=== PATIENT | female | born 1990 | race Caucasian/White ===

== ENCOUNTER 2021-06-22 14:29 | Outpatient (CLI) | payer MEDICAID, SELFPAY ==
[2021-06-27 12:01] LABS: Chlamydia By Nucleic Acid AMP Negative (Negative)
[2021-06-27 12:24] LABS: Gonococcus By Nucleic Acid AMP Negative (Negative)
[2021-06-28 22:42] LABS: HPV Reflexed? NOT INDICATED
== END 2021-06-22 23:59 | disposition home or self-care (01) ==
LOC: LABSPEC 14:31
PROVIDERS: Visit Provider Obstetrics & Gynecology
DX: Z12.4 Encounter for screening for malignant neoplasm of cervix (principal); Z11.3 Encounter for screening for infections with a predominantly sexual mode of transmission
CPT/HCPCS: 87491; 87591; 88175; G0145

== ENCOUNTER 2021-06-26 11:28 | Day surgery (SDC) | payer MEDICAID, SELFPAY ==
--- NOTE | 2021-06-24 16:04 | HP.PCM_ITS ---
History and Physical Date of Admission: 06/26/21 Surgical History and Physical Shannon Bishop, a 30 year old female 1 3 1 1 4, presents for Hysteroscopic IUD removal and IUD Placement on 06/26/21 . -- Impacted IUD -- unable to feel IUD string; IUD placed 08/30. Unable to remove in office. Due for replacement. MEDICATIONS HISTORY: Current medications prescribed by our practice are: 1. doxycycline hyclate 100 mg capsule, One pill by mouth twice a day Patient is also takin. Mirena 20 mcg/24 hr (5 years) intrauterine device, As Directed ALLERGIES: NKDA, Percocet and Muscle spasms/twitching Infections - Chickenpox Vaccine Illnesses - no serious past illnesses Accidents - None Hospitalizations - see surgery by [facility]; Review of Systems: GENERAL - Denies fever, or chills SKIN - Denies skin changes EYES - Denies visual changes EARS - Denies difficulty hearing NOSE - Denies nasal congestion or bleeding MOUTH - Denies sore throat or difficulty swallowing NECK - Denies pain or swelling RESPIRATORY - Denies shortness of breath or wheezing CARDIOVASCULAR - Denies palpitations or chest pain GASTROINTESTINAL - Denies nausea, vomiting, diarrhea, constipation GENITOURINARY - Denies dysuria, frequency of urination, incontinence of urine MUSCULOSKELETAL - Denies joint or muscle pain NEUROLOGICAL - Denies localized numbness or weakness PSYCHIATRIC - Denies depression or anxiety ENDOCRINE - Denies heat or cold intolerance, weight loss or gain HEMATO-IMMUNOLOGIC - Denies excesive bleeding with cuts SOCIAL HISTORY: Alcohol Use - drinks occasionally Smoking - 3-5 cigs per day/ attempting to quit Diet - moderately well balanced, occ problems with lactose Lifestyle - high stress, seperated Exercise - regular Seat Belt Use - always Employer - Unemployed Illicit Drug Use - uses marijuana and as a teen Sexual Activity - single sexual partner Residence - owns a home Spouse-Sig Other Name - Garfield Spouse-Sig Other Occupation - [employer] Children Name(s) - Pio (twins 2009), Natalia (adopted out 2011), Jerzy (2013) Control - IUD FAMILY HISTORY: Mother: Mental Chemical Imbalnaces. Brother: Thyroid Problems. Sister: Mental chemical Imbalances. MENSTRUAL HISTORY: LMP Known?- Mirena IUDAmount/Duration - 5 to 7 days, Regularity - Regular, Frequency - monthly days, LMP - 06/18/21, Age Onset Menarche - 15 PAST PREGNANCIES: Total Pregnancies - 4; Full Term Pregnancies - 1; Premature - 3; Abortions, Induced - 0; Abortions, Spontaneous - 1; Ectopics - 0; Multiple Births - 1; Living Children - 4 SURGICAL HISTORY: 1994 [facility] and A ; - PHYSICAL EXAM BP- 132/86 Sitting, Right arm, regular cuff Weight- 105.0 lbs Height- 61.50 inch BMI:19.5 CONSTITUTIONAL - NAD, well nourished, and well developed SKIN - No rash, lesions, or ulcers HEENT - Normocephalic, PERRLA, EOMI NECK - No nodes, no nuchal rigidity and thyroid normal size and texture LYMPH NODES - Palpation of lymph nodes in neck and groins within normal limits LUNGS - CTA x2 without wheezes, crackles or rales CARDIAC - Regular rate and rhythm without rubs, murmurs, or gallops BREAST - No dominant masses, no tenderness, no axillary adenopathy, no nipple discharge, no skin changes ABDOMEN - Without hepatosplenomegaly, distention, masses, rebound, or guarding; normal bowel sounds; no hernias EXTREMITIES - No edema or calf tenderness NEUROLOGICAL - Cranial nerves II-XII grossly intact PSYCHIATRIC - A and O to time, place, person, mood and affect External Genitial Vagina - non-tender without lesions Urethra/Urethral Meatus - non-tender Bladder - non-tender Vagina - vaginal martinez are pink and moist without loss of rugae and no evidence of atropy Cervix - without cervical motion tenderness and has normal size and features without evident lesions and IUD string not seen Uterus - 5-6 cm in size, mobile and nontender Adnexa - clear without massess or tenderness ASSESSMENT/PLAN: Impacted IUD Unable to remove IUD in office even under u/s guidance. Plan H/S removal and reinsertion of new IUD. Discussed RBAs.
[2021-06-26] VITALS (7 sets, daily range): BP systolic 107–117; BP diastolic 67–81; PULSE 60–80; RESP 16; TEMP 36.4–37.2; O2SAT 100; BMI 19.2
[2021-06-26] MEDS: Lactated Ringers 1,000 ML 100 ML IV (12:00)
[2021-06-26 12:30] LABS: Internal QC Validated? YES +Cl - CLEAR BKGD; Pregnancy, Urine Negative Negative
[2021-06-26 13:04] LABS: Hematocrit 39.3 % (37-47); Hemoglobin 13.3 g/dL (12.0-15.0); Mean Corp Hgb Conc 33.8 g/dL (32-36); Mean Corpuscular Hgb 32.7 pg (27.0-32.0); Mean Corpuscular Volume 96.6 fL (81-99); Mean Platelet Vol. 9.6 fl (6.2-12.0); Platelet Count 241 K/mm3 (150-450); RBC Distribution Width CV 11.8 % (11.6-14.6); Red Blood Count 4.07 M/mm3 (4.2-5.4)
--- NOTE | 2021-06-26 13:06 | PCM.OPRPT ---
Report of Operation Date of Procedure: 06/26/21 Pre-Operative Diagnosis: Impacted Intrauterine Device Post-Operative Diagnosis: Impacted Intrauterine Device Surgery/Procedure Performed:: Hysteroscopy, Removal of IUD Device, Placement of Liletta IUD Description of Surgical Findings:: Mirena IUD noted at fundus of uterus in an 8 cm endometrial cavity. Surgeon: Orion Kang Type of Anesthesia: MAC Anesthesiologist: Abdirahman Del Castillo Specimen's removed: Mirena IUD, discarded Estimated Blood Loss (mL): Minimal Fluids Replaced: Crystalloid Description of Procedure: Surgeon: Orion Kang MD, FACOG Indication: This is a 30 year old patient who presented last week to the office for replacement of Mirena IUD. IUD string was not visible and despite ultrasound guidance we were unable to remove this IUD in the office. Pt has been counseled regarding the risks, benefits and alternatives of this procedure and all questions answered. Procedure: Patient taken to the operating room where after IV sedation the patient was prepped and draped in the usual sterile fashion. Anterior cervix grasped and cervix was dilated to about 4-5 mm. A 3 mm hysteroscope was inserted IUD retrieved without difficulty. About 75 cc of normal saline was used and all of this recovered. A new Liletta was then placed in the usual fashion trimming the IUD string to about 2 cm length. The patient tolerated the procedure well and was taken to the recovery room in satisfactory condition. Sponge, instruments and needle counts were all correct. There were no apparent complications of the surgery. Cefotan 2 gms IV was given prior to the procedure. Estimated Blood Loss: Minimal Grafts/Implants Used: Liletta IUD brought from [place] PER DIEM PHYSICAL THERAPIST ASSISTANT office (Lot [id number]; Exp 07/2024) Complications None Admit VTE Documentation VTE Present on Admission: Yes VTE Mechan Device Prophylaxis: SCD's
[2021-06-26] MEDS: Cefotetan 2 GM in 0.9% NS 100 ML IV (13:15)
--- NOTE | 2021-06-26 13:37 | PCM.DC ---
Discharge Instructions Diet Discharge Diet: No restrictions Activity Discharge Activity: Return to Normal Activity, May Shower and May Take a Tub Bath Additional Activity Instructions:: Nothing in vagina for 1 to 2 days. Okay the use ibuprofen or Tylenol per package directions for any cramping you may have over the next few days. Dressing / Incision Call your doctor if you observe: Fever of 101 or Higher, Inability to urinate and Inability to have a bowel movement Follow Up Care Please Follow Up With: Orion Kang MD When: 4 weeks Test Results: Test results from this visit will be discussed in further detail at your follow-up appointment, if applicable. Discharge Plan Admission Primary Reason for Your Visit: Hysteroscopic IUD Removal; Liletta IUD Placement Attending Provider: Orion Kang Primary Care Provider: Care Physician,Lashay Primary Discharge Orders/Prescriptions Prescriptions: No Action diphenhydramine HCl [Allergy] 25 mg Tablet 25 mg PO DAILY RF: 0 Referrals / Follow Up: Care Physician,No Primary [Primary Care Provider] - Disposition Disposition (needs filled in before D/C Order can be placed): Home, Self Care
== END 2021-06-26 23:59 | disposition home or self-care (01) ==
LOC: SDC 11:29 → AC 11:31
PROVIDERS: Anesthesiology; Visit Provider Obstetrics & Gynecology
PROC: 0UDB8ZZ Extraction of Endometrium, Via Natural or Artificial Opening Endoscopic (ICD-10-PCS; CPT 58558; principal; 2021-06-26 13:10)
DX: Z30.433 Encounter for removal and reinsertion of intrauterine contraceptive device (principal); F17.210 Nicotine dependence, cigarettes, uncomplicated; T83.39XA Other mechanical complication of intrauterine contraceptive device, initial encounter; Y84.8 Other medical procedures as the cause of abnormal reaction of the patient, or of later complication, without mention of misadventure at the time of the procedure
CPT/HCPCS: 58300; 58301; 00940; 81025; 85027; 86850; 86900; 86901; J7120; J2405

== ENCOUNTER 2024-03-30 17:10 | Emergency (ER) | payer MEDICAID, SELFPAY ==
[2024-03-30 17:10] VITALS: BP 126/89; PULSE 91; RESP 20; TEMP 36.2; O2SAT 100; BMI 19.2
--- NOTE | 2024-03-30 17:15 | RAD_ITS ---
EXAM: XR RIGHT HAND COMPLETE, 3 OR MORE VIEWS CLINICAL INDICATION: FALL TECHNIQUE: Frontal, lateral and oblique views of the right hand. COMPARISON: No relevant prior studies available. FINDINGS: BONES/JOINTS: There is a fracture of the distal fifth metacarpal. Preservation of the joint space. No sclerotic or destructive changes observed. SOFT TISSUES: Unremarkable. No soft tissue swelling or gas. No radiopaque foreign body. RAD/Hand Min 3 Views IMPRESSION: Fracture of the distal fifth metacarpal. Electronically Signed: Gume Ford MD at 17:47 EST ,
--- NOTE | 2024-03-30 19:48 | EX.ED.UPPERE ---
HPI History of Present Illness Chief Complaint: Upper Extremity Injury Narrative Narrative: 33-year-old female, [id number], denies significant past medical history presents with injury to her right hand that she sustained approximately 3-1/2 hours ago. She states that she slipped on the ice and fell. Her right hand was in the pocket of her hoodie, and she fell to the right, injuring her right hand. She has pain, swelling, and bruising over the distal fifth metacarpal. She denies hitting her head or loss of consciousness, no other injury. No neck pain. PFSH PFSH Medical History Ear piercing Infected pierced face Infected pierced clitoris Pierced tongue Wears glasses Alcohol use Marijuana use Easy bruising Injury of head and neck Smoker Home Medications ?Medication ?Instructions ?Recorded ?Last Taken ?Type diphenhydramine HCl 25 mg tablet 25 mg PO DAILY 06/23/21 Unknown History (Allergy) oxycodone 5 mg tablet 5 mg PO Q6H PRN pain 3 days #12 03/30/24 Unknown Rx tabs Allergy/AdvReac Type Severity Reaction Status Date / Time acetaminophen (From Percocet) Allergy Hives Verified 06/23/21 08:11 oxycodone HCl (From Percocet) Allergy Hives Verified 06/23/21 08:11 Surgical History Hx of wisdom tooth extraction History of tonsillectomy and adenoidectomy Social History Smoking Status: Current every day smoker tobacco type: cigarettes ROS ROS ED ROS Narrative Review of systems positive for right hand pain and swelling over the fifth knuckle at the base of the fifth digit. Denies other injury. EXAM Physical Exam Narrative Exam Narrative: GCS 15. ABCs intact. Tearful on examination. Inspection of the right hand does reveal ecchymosis tenderness and swelling at the distal right fifth metacarpal. Uninjured at the wrist and above. Const Vital Signs: 03/30/24 17:10 Temperature 97.2 F L Temperature Source Temporal Pulse Rate 91 Respiratory Rate 20 H Blood Pressure 126/89 H Blood Pressure Mean 101 Pulse Ox 100 Oxygen Delivery Method Room Air MDM MDM MDM Narrative Medical decision making narrative: Differential diagnosis includes but not limited to hand contusion versus fracture. X-rays were obtained per protocol and interpreted by myself independently which shows a fracture of the distal fifth metacarpal with angulation of the metacarpal head volarly. Patient declines analgesics here in the emergency department. She drove herself here so she cannot be given narcotics and she declined Tylenol or ibuprofen. She was placed in a ulnar gutter splint with fingers at 45 degrees at the fourth and fifth digit as best as she tolerated.. She will be written for narcotic analgesics and referred to plastics/hand surgery. She was written a prescription for oxycodone. She states that she is not allergic to any medications and that was a mistake in her medical record. She was given a sling for comfort. I stressed the importance of follow-up with hand. Disposition is discharged home in stable condition. Radiography Diagnostic Testing: Clinical Impression(s) from Imaging Studies Hand X-Ray 03/30/24 17:15 IMPRESSION: Fracture of the distal fifth metacarpal. Electronically Signed: Gume Ford MD at 17:47 EST , Procedures Upper Extremity Splints Upper Extremity Splint: Orthoglass and Ulnar gutter Splint Fabrication: Fabricated Location: Right Discharge Plan Triage Chief Complaint: Upper Extremity Injury ED Provider: Rodrigo Davies Dx/Rx/DC Orders Clinical Impression: Fall, Closed fracture of fifth metacarpal bone of right hand Instructions: ED Closed Hand Fracture (Adult) Prescriptions: New oxycodone 5 mg tablet 5 mg PO Q6H PRN (Reason: pain) 3 Days Qty: 12 0RF No Action diphenhydramine HCl [Allergy] 25 mg Tablet 25 mg PO DAILY Primary Care Provider: Care Physician,No Primary Referrals: rOtega Diamond MD [Med Staff - Active Staff] - 3-5 Days Care Physician,No Primary [Primary Care Provider] - Print Language: [place] Disposition Disposition: Home, Self Care
[2024-03-30 21:10] VITALS: BP 121/79; PULSE 81; RESP 16; TEMP 36.6; O2SAT 99
== END 2024-03-30 21:17 | disposition home or self-care (01) ==
PROVIDERS: Emergency Provider Emergency Medicine; Visit Provider Emergency Medicine
DX: S62.306A Unspecified fracture of fifth metacarpal bone, right hand, initial encounter for closed fracture (principal); W00.0XXA Fall on same level due to ice and snow, initial encounter; F17.210 Nicotine dependence, cigarettes, uncomplicated
CPT/HCPCS: 29125; 73130; 99283

== ENCOUNTER 2024-04-01 11:25 | Day surgery (SDC) | payer MEDICAID, SELFPAY ==
[2024-04-01] VITALS (10 sets, daily range): BP systolic 97–112; BP diastolic 66–77; PULSE 62–76; RESP 16; TEMP 36.1–37.2; O2SAT 98–100; BMI 19.8
[2024-04-01 11:49] LABS: Internal QC Validated? YES +Cl - CLEAR BKGD; Pregnancy, Urine Negative Negative
--- NOTE | 2024-04-01 11:50 | PCM.HP.STD ---
HPI - General HPI Narrative Shannon Bishop is a delightful 33-year-old [id number] female who sustained a right hand injury on 30 March 2024 when she slipped and fell on ice. Her right hand was in her pocket when she slipped and fell. She denies any other injuries in her elbow wrist shoulder or head. No neck pain. She presented to the emergency department yesterday after the mechanical fall and was cleared for follow-up in our office today. Denies any headaches or loss of consciousness. Patient reports sharp severe pain in the right upper extremity worsened by movements and improved with rest and elevation. No history of trauma to the right upper extremity or surgery. She does not have any history of bleeding or clotting problems. She is a current every day smoker (discussed smoking cessation and bone healing). Patient works for [employer] as primary income. Has 4 children. No longer living with her . She would like to get back to her regular ADLs as soon as possible. Current Encounter (DATE OF SURGERY H&P UPDATE): I saw and examined the patient this morning in pre-operative holding. We discussed risks and benefits of today's surgery and they would like to proceed. NO CHANGE in health history since last seen and evaluated. Ready to proceed with surgery. [facility] Medical History Ear piercing Infected pierced face Infected pierced clitoris Pierced tongue Wears glasses Alcohol use Marijuana use Easy bruising Injury of head and neck Smoker Home Medications ?Medication ?Instructions ?Recorded ?Last Taken ?Type diphenhydramine HCl 25 mg tablet 25 mg PO DAILY 06/23/21 Unknown History (Allergy) oxycodone 5 mg tablet 5 mg PO Q6H PRN pain 3 days #12 03/30/24 Unknown Rx tabs acetaminophen 500 mg tablet 500 mg PO Q6H PRN 03/31/24 Unknown History (Tylenol Extra Strength) cephalexin 500 mg capsule 500 mg PO Q8H 5 days #15 caps 04/01/24 Unknown Rx Allergy/AdvReac Type Severity Reaction Status Date / Time acetaminophen (From Percocet) Allergy Hives Verified 03/31/24 10:21 oxycodone HCl (From Percocet) Allergy Hives Verified 03/31/24 10:21 Surgical History Hx of wisdom tooth extraction History of tonsillectomy and adenoidectomy Social History Smoking Status: Current every day smoker tobacco type: cigarettes Electronic Cigarette Use: with nicotine alcohol intake: current alcohol intake frequency: holidays/special occasions only additional social history: No personal or family hx blood clots Physical Exam Narrative Closed injury Inspection: Slight angulation/scissoring of the small finger radially. Significant bruising Palpation: No tenderness to palpation of the wrist or of the scaphoid. No tenderness to palpation in the other portions of the hand. No tenderness to the elbow/shoulder. Motor: Extensor lag of the right small finger. Unable to make a fist. Bends DIP and PIP joints, however (no flexor injuries). Normal range of motion the rest of upper extremity. Sensory: Intact to light touch on the radial and ulnar borders. Vascular: Finger tips are warm and well perfused with <2 second capillary refill. Results Lab / Micro Data Labs: Laboratory Results - last 24 hr 04/01/24 11:40: Urine Test Negative Assessment & Plan Assessment/Plan (1) Closed fracture of fifth metacarpal bone of right hand: PLAN: Discussed options for management including local anesthesia with an attempt at reduction today in clinic followed by x-rays. She declined this option. Discussed risks of nonoperative management including malunion or nonunion and poor function of the small finger. Discussed the risks, benefits, and alternatives of closed reduction percutaneous pinning versus open reduction internal fixation of the small finger. She would like to proceed with surgery I talked the patient extensively about the risks of surgery, including bleeding, infection, hardware failure, malunion or nonunion, need for revision of the hardware removal of the hardware, MRI incompatibility of screws/wires, damage to surrounding structures, surgical site dehiscence and wound formation, need for wound care, need for repeat operations, failure to obtain the desired result, DVT/PE, and the risks of anesthesia including . The benefits and alternatives of this surgery were also discussed. All of their questions were answered, and they agreed to proceed with surgery. Plan for Nikhil block with sedation and closed reduction percutaneous pinning versus open reduction internal fixation of the right small finger (likely open reduction internal fixation with screw). I talked to the patient extensively today about options. She is no longer with and needs income for her 4 children. She would like to do screw, if possible, (understands risks/benefits) for early active ROM. Further discussed risks as noted above today, including comminution of the fracture 2/2 the hardware and need for prolonged immobilization for healing if the IM screw cannot be safely placed. INTERVAL H&P PLAN, DATE OF SURGERY: We will proceed with surgery today.
[2024-04-01] MEDS: Lidocaine 0.5% (50 ml) 50 ML Vial (11:58)
--- NOTE | 2024-04-01 12:00 | RAD_ITS ---
Exam: XR Fingers Min 2 Views RIGHT HAND Comparison: Plain films March 30, 2024. Showing mildly displaced, distracted and angulated distal fifth metacarpal fracture. History: CLOSED REDUCTION PERCUTANEOUS PINNING VERSUS OPEN REDUCTION. 5TH Radiation dose: Total exposure time 14 seconds, total DAP 1.8962cGy*cm*, total Air Kerma 0.1129 mGy. TECHNIQUE : 14 fluoroscopic spot images of the fifth metacarpal. FINDINGS: Initial view of fractured fifth metacarpal, localizer, multiple procedural images, and placement of intramedullary stabilization michelle. The fracture margins appear well approximated final view. RAD/Finger(s) Min 2 Views IMPRESSION: Intraoperative exam. Please see the procedural report. Well-positioned hardware bridging fifth metacarpal fracture . Electronically Signed: Karla Moise MD at 2:11 EST ,
--- NOTE | 2024-04-01 12:13 | PCM.OPRPT ---
Operative Report (Standard) Operative Information Date of Procedure: 04/01/24 Pre-Operative Diagnosis: Right small finger metacarpal neck fracture Post-Operative Diagnosis: Same Surgery/Procedure Performed: 1) Open reduction, internal fixation of the right small finger metacarpal fracture, CPT: 48081 administrative services officer: Yes [employer] Truck Driver: Donald Patel Tasks completed by assistant auto center manager: Retracting Type of Anesthesia: Local MAC (Nikhil block and local (10 cc of 0.25% marcaine) ) RN Documented Start/Stop Times: Operation Date: 04/01/24 13:30 Case Time Into Pre-Op 04/01/24 11:59 Anesthesia Start 04/01/24 12:46 Into Room 04/01/24 12:46 Procedure Start 04/01/24 13:08 Procedure End 04/01/24 13:35 Anesthesia End 04/01/24 13:41 Out of Room 04/01/24 13:41 Into Recovery 04/01/24 13:44 Into Phase II Recovery 04/01/24 14:30 Out of Recovery 04/01/24 14:30 Out of Phase II 04/01/24 14:59 Procedure Start Time: 13:08 Procedure Stop Time: 13:35 Select all DRAINS/GRAFTS/IMPLANTS that apply: Implanted device (Intramedullary screw, please see details below ) Implanted device details: Exsomed INnate Implant, 3.6 mm x 40 mm Estimated Blood Loss: minimal Specimen collected: No Description of surgery: Indications: Patient is a delightful 33-year-old female who sustained a right metacarpal neck fracture 2 days ago when she fell on ice. It is significantly displaced. She would like to get back to work and moving her hand as soon as possible (would like early active range of motion), and therefore would like me to attempt open reduction internal fixation with an intramedullary screw. She understands the risks, benefits, and alternatives of this procedure, and understands we may have to use K wires if we are unable to place a screw. Procedure details: Patient was correctly identified preoperative holding and marked, and taken back to the operating room where they were administered [place] block anesthesia, sedation, and some local. They were prepped and draped in sterile fashion and all proper timeouts were performed per protocol. I began the procedure by taking an x-ray of the fracture. I was able to reduce the ring finger metacarpal fracture with gentle manipulation. I then took a guidewire for an Exsomed intramedullary screw and drilled from the metacarpal head into the diaphysis of the metacarpal with the small finger flexed. Mini C arm x-rays confirmed proper placement and reduction (on PA and lateral). I then checked the digital cascade and there was no angulation or rotation of the ring finger or scissoring. Therefore we proceeded and a cut down with 15 blade scalpel was made down to the head of the metacarpal with care taken to split the tendon longitudinally (this was the open part of the procedure). The 3.6 mm x 40 mm screw was then placed through the guidewire into the metacarpal across the fracture line bridging the gap and filling the medullary cavity well. I was happy with the x-ray on PA and lateral. I stressed the fracture line with radial and ulnar stress, and will flexing the finger, and the construct appeared to be rigid and stable. The guidewire was removed. The cascade was checked one more time and was acceptable. With the guidewire removed, I then irrigated the small wound on the dorsum of the hand and closed with an interrupted horizontal mattress 4-0 nylon suture. The patient tolerated the procedure well and was placed in an ulnar gutter splint with plaster. Post-operative plan: F/u on Saturday, 07 Apr 2024, for wound check and x-ray, then likely removable splint and OT (hand therapy early active ROM). Current splint is to remain until that time (1 week). Surgical Findings: Reducible small finger metacarpal neck fracture with enough distal bone stock for screw Complications Complications: No Admit VTE Documentation VTE Mechan Device Prophylaxis: SCD's
--- NOTE | 2024-04-01 12:34 | PRE.ANES_ITS ---
ASA Classification* ASA Classification ASA Classification: 2 Assessment & Plan Anesthesia* Anesthesia Assessment Anesthesia Assessment: Discussed sedation and/or anesthesia options, risks, benefits, and alternatives with patient/parents/legal guardian/POA. Questions invited. The patient/parents/legal guardian/POA seems to understand and agrees to proceed with anesthesia plan. Reviewed the physical assessment, medical history, allergy history and patient home medications list prior to surgery/procedure/anesthetic and documented any changes. Performed airway and anesthesia risk assessments. Anesthesia Type Anesthesia Type: Block (Nikhil Block with sedation) Anesthesia Focused Assessment* Temperature: 99 F Pulse Rate: 73 Blood Pressure: 112/69 Respiratory Rate: 16 Pulse Ox: 99 Airway Assessment Mouth opens: >3 cm Mallampati Score: II Focused Labs Anesthesia Preop lab: CBC WBC 6.0 K/mm3 (4.4-11.0) 06/26/21 12:45 RBC 4.07 M/mm3 (4.2-5.4) L 06/26/21 12:45 Hgb 13.3 g/dL (12.0-15.0) 06/26/21 12:45 Hct 39.3 % (37-47) 06/26/21 12:45 Plt Count 241 K/mm3 (150-450) 06/26/21 12:45 CHEMISTRY Potassium 3.6 mmol/L (3.5-5.1) 07/12/13 19:35 Sodium 137 mmol/L (136-145) 07/12/13 19:35 BUN 10 mg/dL (7-18) 07/12/13 19:35 Creatinine 0.4 mg/dL (0.6-1.0) L 07/12/13 19:35 Glucose 77 mg/dL (70-110) 07/12/13 19:35 TSH 0.78 uIU/mL (0.358-3.74) 03/06/13 10:20 COAG HCG, Quant 6851 mIU/mL (<9 non-preg) H 02/26/13 15:57 Urine Test Negative Negative 04/01/24 11:40 Pre-Assessment Diagnosis/Proposed Procedure Planned Operative Procedure(s): closed reduction percutaneous pinning versus open right small finger Anesthesia History 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 When Was Last Pacemaker Check QUESTION #4 FULL TEXT: You/Your Family Experience fever (hyperthermia) with Anesthesia Last Oral Intake Last Oral intake: Last Oral Intake NPO since 23:30 04/01/24 11:59 Meds taken in AM with sips of No 04/01/24 11:59 water? Meds patient instructed to take am of surgery PONV PONV - roll line operator: PONV - roll line operator Female HX of Motion Sickness HX of N/V After Surgery Non-Smoker Duration of Surgery greater than 60 minutes Number of Risk Factors PONV Score Height & Weight Height & Weight: Anesthesia: Height & Weight Height 5 ft 2 in 04/01/24 11:59 Weight: 49 kg 04/01/24 11:59 Body Mass Index (BMI) 19.8 04/01/24 11:59 Respiratory Assessment Respiratory Assessment - roll line operator: Respiratory Tract Infection Hx - roll line operator Hx Respiratory Tract Infection No 06/23/21 08:13 STOP Sleep Apnea STOP Sleep Apnea - roll line operator: STOP Sleep Apnea - roll line operator Hx Hypertension No 06/23/21 08:13 Hx Sleep Apnea No 06/23/21 08:13 CPAP BIPAP Do you snore loudly (louder than talking or can be heard Do you often feel tired/ fatigued/ sleepy during daytime? Has anyone observed you stop breathing during sleep? STOP Results QUESTION #5 FULL TEXT : Do you snore loudly (louder than talking or can be heard through closed doors)? Tobacco Use History Tobacco Use History - roll line operator: Tobacco Use History - roll line operator Tobacco Use Smoking Status Current every day smoker 03/31/24 10:27 Hx Tobacco Use Yes 06/23/21 08:13 Years Smoking Packs Smoked per Day Smoking Cessation Date was within the last 15 years Hx Smoking Cessation Date Hx Smoking Cessation Counseling Hematologic Medial History Hematologic Hx - roll line operator: Hematologic Medical Hx - infusion rn Hx of Blood Transfusion Hx of Transfusion in last 3 Months Date of Last Transfusion (if within last 3 months) Ever experience any problems with transfusion(s)? Specify any problems Hx of Preganancy in last 3 Months Nurse Filling Out Transfusion & Questions: Date: Time: Patient unable to answer at this time (ie. confused, unrespo /Reproduction History /Reproductive History - roll line operator: /Reproductive Hx- roll line operator Hx Now Gestational Age (in weeks): EDC: Hx Hx Para Hx Section SAB No 03/30/24 17:10 PFSH Medical History Ear piercing Infected pierced face Infected pierced clitoris Pierced tongue Wears glasses Alcohol use Marijuana use Easy bruising Injury of head and neck Smoker Home Medications ?Medication ?Instructions ?Recorded ?Last Taken ?Type diphenhydramine HCl 25 mg tablet 25 mg PO DAILY 06/23/21 Unknown History (Allergy) oxycodone 5 mg tablet 5 mg PO Q6H PRN pain 3 days #12 03/30/24 03/31/24 Rx tabs acetaminophen 500 mg tablet 500 mg PO Q6H PRN pain 03/31/24 Unknown History (Tylenol Extra Strength) cephalexin 500 mg capsule 500 mg PO Q8H 5 days #15 caps 04/01/24 Unknown Rx Allergy/AdvReac Type Severity Reaction Status Date / Time No Known Allergies Allergy Verified 04/01/24 11:57 Surgical History Hx of wisdom tooth extraction History of tonsillectomy and adenoidectomy Social History Smoking Status: Current every day smoker tobacco type: cigarettes Electronic Cigarette Use: with nicotine alcohol intake: current alcohol intake frequency: holidays/special occasions only additional social history: No personal or family hx blood clots Review of Systems (Anesthesia) ROS Narrative System reviewed and no additional complaints, except as documented.
[2024-04-01] MEDS: Cefazolin 2 GM in Syringe IV (12:57)
--- NOTE | 2024-04-01 13:50 | PCM.POST.ANE ---
Anesthesia: Postop Eval I Current Vital Signs Temperature: 97.1 F Pulse Rate: 76 Blood Pressure: 97/66 Respiratory Rate: 16 Pulse Ox: 99 Oxygen Delivery Method: Room Air Assessment Airway patent: Yes Spontaneous unlabored respirations: Yes Mental status: Awake nausea: No Vomiting: No Anesthesia Complication: No Fluid Hydration Crystalloid volume administer (ml): 10 Total IV fluid infused: 10 Progress Note Anesthesia document: Postop Eval 1 completed: Yes
--- NOTE | 2024-04-01 13:55 | POSTOPAN2_ITS ---
Anesthesia Postop Eval I Sum Postop Eval Completion status Anesthesia document: Postop Eval 1 completed: Yes Anesthesia Postop Eval I Summary Anesthesia Postop Eval I Summary: Anesthesia Postop Eval I: Assessment Summary Airway patent Yes 04/01/24 13:51 [email or web address] Spontaneous unlabored Yes 04/01/24 13:51 PUMP [email or web address] respirations Mental status Awake 04/01/24 13:51 [email or web address] nausea No 04/01/24 13:51 PUMP [email or web address] Vomiting No 04/01/24 13:51 PUMP [email or web address] Anesthesia Postop Eval I: Fluid Summary Crystalloid volume administer 10 04/01/24 13:51 PUMP [email or web address] (ml) Colloids volume administered ( ml) Blood Product volume administered (ml) Total IV fluid infused 10 04/01/24 13:51 PUMP [email or web address] Anesthesia Postop Eval I: Summary Notes Anesthesia Complication No 04/01/24 13:51 PUMP [email or web address] Anesthesia Complication Comment: Post-operative progress note Anesthesia: Postop Eval II Evaluation Mental status: Awake Pain Level: 0 nausea: No Vomiting: No
--- NOTE | 2024-04-01 13:55 | PCM.POSTANE2 ---
Anesthesia Postop Eval I Sum Postop Eval Completion status Anesthesia document: Postop Eval 1 completed: Yes Anesthesia Postop Eval I Summary Anesthesia Postop Eval I Summary: Anesthesia Postop Eval I: Assessment Summary Airway patent Yes 04/01/24 13:51 CREDIT RISK REVIEW [email or web address].[email or web address] Spontaneous unlabored Yes 04/01/24 13:51 CREDIT RISK REVIEW OFFICER.[email or web address] respirations Mental status Awake 04/01/24 13:51 CREDIT RISK REVIEW OFFICER.[email or web address] nausea No 04/01/24 13:51 CREDIT RISK REVIEW OFFICER.[email or web address] Vomiting No 04/01/24 13:51 CREDIT RISK REVIEW [email or web address].[email or web address] Anesthesia Postop Eval I: Fluid Summary Crystalloid volume administer 10 04/01/24 13:51 CREDIT RISK REVIEW OFFICER.RWOO (ml) Colloids volume administered ( ml) Blood Product volume administered (ml) Total IV fluid infused 10 04/01/24 13:51 CREDIT RISK REVIEW [email or web address].RWOO Anesthesia Postop Eval I: Summary Notes Anesthesia Complication No 04/01/24 13:51 CREDIT RISK REVIEW [email or web address].[email or web address] Anesthesia Complication Comment: Post-operative progress note Anesthesia: Postop Eval II Evaluation Mental status: Awake Pain Level: 0 nausea: No Vomiting: No
[2024-04-01] MEDS: oxyCODONE 5 MG Tablet PO (14:44)
== END 2024-04-01 14:58 | disposition home or self-care (01) ==
LOC: SDC 11:26 → AC 11:28
PROVIDERS: Anesthesiology; Visit Provider Surgery Plastic and Reconstructive Surgery
PROC: (CPT 26615; principal; 2024-04-01 13:15)
DX: S62.336A Displaced fracture of neck of fifth metacarpal bone, right hand, initial encounter for closed fracture (principal); W00.0XXA Fall on same level due to ice and snow, initial encounter; F17.210 Nicotine dependence, cigarettes, uncomplicated
CPT/HCPCS: 26615; 64999; 73140; 76000; 81025; C1713; A4216; J2405

== ENCOUNTER 2024-05-13 11:00 | Outpatient (RCR) | payer MEDICAID, SELFPAY ==
--- NOTE | 2024-04-14 15:10 | HP.OTEVAL ---
Patient's Visit Information Visit Information Visit Information: BRIAN BECK is a 33 year old F, referred to Occupational Therapy by Dr. Ortega Diamond MD, with a diagnosis of unspecified fracture of fifth metacarpal bone R hand. Date of Evaluation: 04/14/24 Occupational Therapist: Marielena Greene Subjective Subjective: This 33 year old female arrives with dx of fx of fifth metacarpal bone of the R hand completion of ORIF 04/01/24. Pt is 1 week and 6 days from surgery. Pt with stitches taken out this date during office visit. Pt has a removable splint that was proved at her last appointment 04/07/24 that she states feels fine has been using coban underneath to keep from sliding. denies numbness and tingling states she is able to move fingers at this time Pain R 5th digit: Current Pain Intensity: 0 Pain Intensity Range: 3 Objective Objective/Observation: pt arrives has swelling in R hand decreased palmar arch noted in R hand ROM Shoulder: wfl Elbow: wfl Forearm: wfl Wrist: R 50/ 35 L 65/60 CMC: wfl MP: wfl IP: wfl Radial Abduction: wfl Palmar Abduction: wfl Opposition: wfl MP: R D5 -10/35 R D4 0/60 PIP: R D5 -20/40 R D4 0/60 DIP: R D5 0/20 R D4 0/10 Strength Strength Comments: to test at later date Edema Wrist: R 15 cm L 14 cm Proximal Phalanx: R hand MCP 17 cm L hand MCP 16.5 cm Sensation Sensation Comments: denies different sensation and denies tingling Quick DASH-Disab of Arm,Shoulder& Hand Quick DASH Score: 63.6350 Goals Goal:: pt will improve R hand clinical research associate strength equal to or greater non affected UE in order to perform day to day tasks pt will improve lateral and tripod pinch strength of R hand equal to or greater than non affected UE in order to perform day to day tasks Goal:: pt will demonstrate ROM equal to non affected UE in order to perform day to day tasks and return to functional use Goal:: pt will decrease R D5 pain to 1/10 or less with movement Goal:: pt will demonstrate reduction in R hand swelling equal to non affected UE in order to improve ROM and functional use Goal:: pt will improve quick dash score by 15 points or more in order to increase functional use of R UE Rehabilitation General Assessment: This 33 year old female arrives with dx of unspecified fracture of fifth metacarpal bone of R hand. Pt with ORIF complete 04/01/24 and stitch taken out this date. Pt presents with impairments in ROM at this time, pain with movement, swelling as well as anticipated decreased strength impacting performance in functional use at this time. pt would benefit from OT services 1-2x a week for 6 weeks. Rehabilitation Potential: Good Anticipated Interventions Anticipated Interventions: A/AAROM/PROM, Strengthening, Edema Control, Orthoses, Joint Protection/Energy Conservation, Fine Motor Coord/Dmitry, Education re Diagnosis and Home Program Visit Plan Frequency: 1-2x /Week Duration: 6 Weeks General Plan: tendon glide hook fist and table top position swelling management orthosis TEXT: Thank you for the opportunity to evaluate your patient. For Medicare and Medicare HMO plans, please review the plan of care and approve it. It will need to be FAXED BACK to us at [phone] for Medicare purposes. Please let me know if there are questions or concerns regarding this plan of care. Physician Signature: Date:
--- NOTE | 2024-09-14 16:21 | HP.OT.NRP ---
Patient Information Patient Information: BRIAN BECK was seen in my office for initial evaluation on 04/14/24. The following Plan of Care was established for this patient: POC Established Initial Frequency: 1-2x /Week Initial Duration: 6 Weeks Plan: progress AROM strengthen at 8 weeks Anticipated Interventions Anticipated Interventions: A/AAROM/PROM, Strengthening, Edema Control, Orthoses, Joint Protection/Energy Conservation, Fine Motor Coord/Dmitry, Education re Diagnosis and Home Program Last Seen Last Seen: This patient was last seen in our office 05/13/24. Pertinent comments regarding their Occupational therapy will appear below: pt was seen for 4/8 scheduled OT sessions. pt canceled or No showed the last scheduled 4 visits. due to time lapse in services pt is d.c at this time. At this point I will be discontinuing this patient from occupational therapy. I would be happy to see this patient again in the future if found appropriate by the physician. Thank you! Katie Hancock, OTR/L, CHT
== END 2024-05-13 19:00 | disposition home or self-care (01) ==
LOC: OT 11:00
PROVIDERS: Referring Provider Surgery Plastic and Reconstructive Surgery; Visit Provider Surgery Plastic and Reconstructive Surgery
DX: S62.306D Unspecified fracture of fifth metacarpal bone, right hand, subsequent encounter for fracture with routine healing (principal)
CPT/HCPCS: 97110; 97165; 97530; 97760

== ENCOUNTER → 2024-06-04 | Outpatient (CLI) | payer MEDICAID, SELFPAY ==
--- NOTE | 2024-06-04 10:30 | RAD_ITS ---
EXAM: XR Right Hand Complete, 3 or More Views CLINICAL INDICATION: FRACTURE OF 5TH METACARPAL BONE RIGHT HAND TECHNIQUE: Frontal, lateral and oblique views of the right hand. COMPARISON: No relevant prior studies available. FINDINGS: BONES/JOINTS: Healing fracture of the 5th metacarpal with fixation screw in place. Intact hardware. Anatomic position. Mild soft tissue swelling. No dislocation. SOFT TISSUES: See above. RAD/Hand Min 3 Views IMPRESSION: Postoperative changes as above. Reading Location: [facility]
== END | disposition home or self-care (01) ==
LOC: RAD 10:26
PROVIDERS: Referring Provider Surgery Plastic and Reconstructive Surgery; Visit Provider Surgery Plastic and Reconstructive Surgery
DX: S62.306A Unspecified fracture of fifth metacarpal bone, right hand, initial encounter for closed fracture (principal)
CPT/HCPCS: 73130